=== PATIENT | male | born 1980 | race Caucasian/White ===

== ENCOUNTER 2024-12-15 23:50 | Emergency (ER) | payer MEDICAID ==
[~2024-12-15] VITALS: Ht 180.3 cm; Wt 86.2 kg
[2024-12-16] MEDS ORDERED: KETOROLAC TROMETHAMINE 15 MG/ML VIAL ONE (01:21)
[2024-12-16] MEDS ORDERED: CYCLOBENZAPRINE 10 MG TABLET ONE (01:21)
[2024-12-16 01:24] LABS: BASOPHILS # (AUTO) 0.1 K/uL (0.0-0.2); BASOPHILS % (AUTO) 1.2 % (0.0-2.0); EOSINOPHILS # (AUTO) 0.1 K/uL (0.0-0.7); EOSINOPHILS % (AUTO) 0.9 % (0.0-6.0); HEMATOCRIT 43 % (39-51); HEMOGLOBIN 14.6 g/dL (13.5-17.5); LYMPHOCYTES # (AUTO) 3.2 K/uL (0.8-4.8); MEAN CORPUSCULAR HEMOGLOBIN 29 PG (26.0-33.0); MEAN CORPUSCULAR HGB CONC 34 g/dl (31.0-36.0); MEAN CORPUSCULAR VOLUME 85 fL (80-96); MONOCYTES # (AUTO) 0.6 K/uL (0.1-1.30); MONOCYTES % (AUTO) 5.6 % (2.0-12.0); NEUTROPHILS # (AUTO) 6.1 K/uL (1.8-8.9); NEUTROPHILS % (AUTO) 60.3 % (43.0-81.0); PLATELET COUNT (AUTO) 274 K/uL (150-450); RED BLOOD CELL COUNT(AUTO) 5.05 MIL/uL (4.5-6.0); RED CELL DISTRIBUTION WIDTH 13.4 % (11.5-15.0); WHITE BLOOD COUNT (AUTO) 10.1 K/uL (4.3-11.0)
[2024-12-16] MEDS: KETOROLAC TROMETHAMINE 15 MG/ML VIAL IM ONE (01:32)
[2024-12-16] MEDS: CYCLOBENZAPRINE 10 MG TABLET PO ONE (01:32)
[2024-12-16 01:34] LABS: CARBON DIOXIDE 27 mmol/L (21-32); CHLORIDE 106 mmol/L (98-107); CREATININE 0.8 mg/dL (0.6-1.3); GLUCOSE 98 mg/dL (74-106); POTASSIUM 3.5 mmol/L (3.5-5.1); SODIUM SERUM 140 mmol/L (136-145); UREA NITROGEN, BLOOD 22 mg/dL (7-18)
[2024-12-16] MEDS ORDERED: CYCL10TA9 PO (03:54)
[2024-12-16] MEDS ORDERED: KETO10TA2 PO (03:54)
[2024-12-16 03:59] VITALS: BP 145/108; TEMP 98.2; O2SAT 98
== END 2024-12-16 03:59 | disposition home or self-care (01) ==
LOC: ER 12-16 00:19
DX: M79.18 Myalgia, other site (principal); R07.89 Other chest pain; R53.1 Weakness; M25.512 Pain in left shoulder; Z86.73 Personal history of transient ischemic attack (TIA), and cerebral infarction without residual deficits; Z87.891 Personal history of nicotine dependence
CPT/HCPCS: 99285; 71045; 96372; 93005; 85025; 80048; 36415; 84484 ×2; J1885